=== PATIENT | female | born 1985 | race American Indian/Alaskan Native ===

== ENCOUNTER 2020-11-27 16:17 | Emergency (ER) | payer OTHER, SELFPAY ==
--- NOTE | 2020-11-27 19:00 | Emergency Department Report ---
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 Patient states pain is located diffusely across her lower abdomen. Describes the pain as "sharp," intermittent, no identifiable exacerbating or relieving factors. No history of similar symptoms. No known sick contacts. Last menstrual cycle was October 30. No prior surgical history. Denies fever, chills, nausea, vomiting, diarrhea, constipation, vaginal bleeding, vaginal discharge, urinary symptoms. Denies all other complaints at this time. - Related Data Home Medications Medication Instructions Recorded Confirmed Last Taken Rivaroxaban [Xarelto] 20 mg PO QDAY 08/19/15 11/09/15 11/09/15 Previous Rx's Medication Instructions Recorded Last Taken Type traMADoL [Ultram] 50 mg PO Q6HR PRN #14 tablet 11/10/15 Unknown Rx Allergies Allergy/AdvReac Type Severity Reaction Status Date / Time No Known Allergies Allergy Verified 08/19/15 08:11 ED Review of Systems ROS: Stated complaint: ABD PAIN RT AND LEFT SIDE Other details as noted in HPI Other: GENERAL: Negative for fever, chills, weight change, anorexia, fatigue. ENT: Negative for ear pain, difficulty hearing, sore throat, nasal congestion, epistaxis. CARDIOVASCULAR: Negative for chest pain, palpitations, lower extremity swelling. PULMONARY: Negative for cough, dyspnea, wheezing, orthopnea, cyanosis. GASTROINTESTINAL: Positive for abdominal pain. MUSCULOSKELETAL: Negative for joint pain, joint swelling, myalgias, back pain, neck pain. NEUROLOGICAL: Negative for headache, seizure, syncope, paresthesias, weakness. INTEGUMENTARY: Negative for erythema, rash, diaphoresis, laceration, ecchymosis. HEMATOLOGICAL: Negative for hemoptysis, hematemesis, hematochezia, hematuria. PSYCHIATRIC: Negative for hallucinations, suicidal ideation, homicidal ideation, anxiety, depression. ED Past Medical Hx - Past Medical History Previous Medical History?: Yes Hx Congestive Heart Failure: No Hx Diabetes: No Hx Pulmonary Embolism: Yes (ivc filter placed 05/2015) Hx GERD: Yes Hx Asthma: No Hx COPD: No - Surgical History Past Surgical History?: Yes Additional Surgical History: IVC filter May 2015 - Social History Smoking Status: Never Smoker Substance Use Type: None - Medications Home Medications: Home Medications Medication Instructions Recorded Confirmed Last Taken Type Rivaroxaban [Xarelto] 20 mg PO QDAY 08/19/15 11/09/15 11/09/15 History traMADoL [Ultram] 50 mg PO Q6HR PRN #14 tablet 11/10/15 Unknown Rx ED Physical Exam - General Limitations: No Limitations - Other Other exam information: General: Awake and alert. No acute distress. Head: Atraumatic, normocephalic. Eyes: EOMI. Pupils are equal and round. Normal sclera and conjunctiva. ENT: Oral mucosa is moist. Normal pharyngeal exam. Neck: Supple. No lymphadenopathy. Pulmonary: No respiratory distress. Clear to auscultation bilaterally. Cardiac: Regular rate and rhythm. Pulses are palpable and equal bilaterally. No lower extremity cyanosis or edema. Skin: Warm and dry. No rashes. Abdomen: Soft, non-protuberant. Diffuse lower abdominal tenderness without guarding, rigidity, or rebound. Bowel sounds are normal. No organomegaly or masses noted. Back: Normal alignment. No CVA tenderness. Extremities: Symmetrical. Full range of motion intact. Neurological: Alert and oriented, appropriately interactive, no focal deficits. Psych: Cooperative. Appropriate mood and affect. Speech is evenly metered. Thoughts are logically construed. ED Course Vital Signs 11/27/20 16:53 Temperature 98.0 F Pulse Rate 70 Respiratory 18 Rate Blood Pressure 132/81 O2 Sat by Pulse 98 Oximetry ED Medical Decision Making - Lab Data Result diagrams: 11/27/20 19:05 11/27/20 19:05 - Radiology Data [facility] [address] [place] [address] Cat Scan Report Signed Patient: EDISON EDWARDS MR#: [id number] : 1985 Acct:[id number] Age/Sex: 34 / F ADM Date: 11/27/20 Loc: ED Attending Dr: Ordering Physician: LAYLA ROSAS Date of Service: 11/27/20 Procedure(s): CT angio abdomen pelvis Accession Number(s): [id number] cc: LAYLA ROSAS CTA ABDOMEN AND PELVIS WITH CONTRAST INDICATION / CLINICAL INFORMATION: Pt complains of lower abd pain, Hx DVT's, bilat filters in place. TECHNIQUE: Axial CT images were obtained through the abdomen and pelvis before and after after injection of 100 cc of Omnipaque 350 IV contrast. 3 plane MIP / 3D reconstructions were produced. All CT scans at this location are performed using CT dose reduction for ALARA by means of automated exposure control. COMPARISON: None available. FINDINGS: AORTA: No significant abnormality. RENAL ARTERIES: No significant abnormality. CELIAC ARTERY: No significant abnormality. SUPERIOR MESENTERIC ARTERY: No significant abnormality. INFERIOR MESENTERIC ARTERY: No significant abnormality. RIGHT ILIAC ARTERIES: No significant abnormality.. LEFT ILIAC ARTERIES: No significant abnormality.. ADDITIONAL FINDINGS: There is a left common iliac vein stent. The patency of this is not evaluated on this examination secondary to contrast timing for arterial phase. There is a hypoattenuating lesion noted within the right hepatic lobe, consistent with a hepatic cyst. Otherwise the liver is unremarkable. SKELETAL: No significant abnormality. IMPRESSION: 1. No significant abnormality noted involving the arteries. 2. Other findings as above. Signer Name: Rehan Kimbrough DO Signed: 11/27/2020 10:01 PM Workstation Name: [id number] Transcribed By: BRIAN Dictated By: REHAN KIMBROUGH DO Electronically Authenticated By: REHAN KIMBROUGH DO Signed Date/Time: 11/27/202200 DD/ 56 TD/TT: - Medical Decision Making Differential diagnosis including but not limited to: appendicitis, pancreatitis, hepatobiliary disease, , urinary tract infection, pyelonephritis, pelvic inflammatory disease, mesenteric ischemia, arterial occlusion, filter/stent malfunction On reevaluation, patient remains stable. Repeat abdominal exam is benign. Labs consistent with mild dehydration. test is negative. Urinalysis without signs of infection. CT angiogram of the abdomen/pelvis was obtained due to patient's history of venous thromboembolism. No acute process was identified. Etiology of patient's abdominal pain is unclear however there is no clinical indication for further diagnostic work-up and/or emergent surgical consultation at this time. Patient will be discharged home to follow-up with primary care provider this week. Patient expressed understanding and is agreeable to plan of care. Strict return precautions provided. Repeat exam is unremarkable and benign. History, exam, diagnostic testing, and current condition do not suggest worrisome pathology to warrant further testing, continued ED treatment, admission, or surgical evaluation at this point. Given the low probability of a significant medical illness, it would be more likely to result in harm than benefit to perform further testing at this stage. Discussed findings, presumptive diagnosis, need for follow-up and specific signs/symptoms that should prompt immediate return to the emergency department. Instructions were explained in detail to the patient in addition to giving written discharge information. Patient expressed understanding and was given the opportunity to ask questions, all of which were satisfactorily answered prior to discharge home. Critical care attestation.: If time is entered above; I have spent that time in minutes in the direct care of this critically ill patient, excluding procedure time. ED Disposition Clinical Impression: Nonspecific abdominal pain, Mild dehydration Disposition: HOME / SELF CARE / HOMELESS Is pt being admited?: No Does the pt Need Aspirin: No Condition: Stable Instructions: Abdominal Pain (ED), Abdominal Pain, Adult, [id number], Dehydration, Adult Additional Instructions: Take Tylenol every 4 hours as needed for pain. Rest. Drink plenty of fluids. Gradually advance diet slowly as tolerated. Follow-up with primary care provider this week. Call tomorrow to schedule an appointment. See referral information below. Return to the emergency department immediately for new or worsening symptoms. Specifically, return to the emergency department immediately for fever, worsening pain, vomiting, black/bloody stools, abnormal vaginal bleeding or discharge, or any other concerns. Referrals: RUDDY CHAMPION MD [Staff Physician] - 3-5 Days [facility] [Provider Group] - 3-5 Days Time of Disposition: 22:22
[2020-11-27 19:27] LABS: Basophils % (Auto) 0.9 % (0.0-1.8); Eosinophils # (Auto) 0.2 K/mm3 (0.0-0.4); Eosinophils % (Auto) 3.4 % (0.0-4.3); Hematocrit 33.3 % (30.3-42.9); Hemoglobin 10.3 gm/dl (10.1-14.3); Lymphocytes # (Auto) 1.9 K/mm3 (1.2-5.4); Lymphocytes % (Auto) 37.3 % (13.4-35.0); Mean Corpuscular HGB Conc 31 % (30-34); Monocytes # (Auto) 0.6 K/mm3 (0.0-0.8); Monocytes % (Auto) 11.4 % (0.0-7.3); Platelet Count 346 K/mm3 (140-440); Red Blood Count 4.91 M/mm3 (3.65-5.03)
[2020-11-27 19:34] LABS: Mean Corpuscular Volume 68 fl (79-97)
[2020-11-27 19:35] LABS: Red Cell Distribution Width 24.3 % (13.2-15.2)
[2020-11-27 19:54] LABS: Alanine Aminotransferase 13 units/L (7-56); Albumin 4.5 g/dL (3.9-5); BUN/Creatinine Ratio 25; Blood Urea Nitrogen 20 mg/dL (7-17); Calcium 9.8 mg/dL (8.4-10.2); Hemolysis Index 4
[2020-11-27 20:03] LABS: Bilirubin,Urine NEG (Negative); Blood,Urine NEG (Negative); Color,Urine Yellow (Yellow); Mucus,Urine FEW /HPF
[2020-11-27] MEDS ORDERED: SODIUM CHLORIDE 0.9% 1000 ML 1,000 ML IV ONE (20:11)
--- NOTE | 2020-11-27 22:05 | Cat Scan Report ---
CTA ABDOMEN AND PELVIS WITH CONTRAST INDICATION / CLINICAL INFORMATION: Pt complains of lower abd pain, Hx DVT's, bilat filters in place. TECHNIQUE: Axial CT images were obtained through the abdomen and pelvis before and after after inject ion of 100 cc of Omnipaque 350 IV contrast. 3 plane MIP / 3D reconstructions were produced. All CT sc ans at this location are performed using CT dose reduction for ALARA by means of automated exposure c ontrol. COMPARISON: None available. FINDINGS: AORTA: No significant abnormality. RENAL ARTERIES: No significant abnormality. CELIAC ARTERY: No significant abnormality. SUPERIOR MESENTERIC ARTERY: No significant abnormality. INFERIOR MESENTERIC ARTERY: No significant abnormality. RIGHT ILIAC ARTERIES: No significant abnormality.. LEFT ILIAC ARTERIES: No significant abnormality.. ADDITIONAL FINDINGS: There is a left common iliac vein stent. The patency of this is not evaluated on this examination secondary to contrast timing for arterial phase. There is a hypoattenuating lesion noted within the right hepatic lobe, consistent with a hepatic cyst. Otherwise the liver is unremarka ble. SKELETAL: No significant abnormality. IMPRESSION: 1. No significant abnormality noted involving the arteries. 2. Other findings as above. Signer Name: Rehan Bowling DO Signed: 11/27/2020 10:01 PM Workstation Name: [id number]
[2020-11-27] MEDS ORDERED: SODIUM CHLORIDE 0.9% 1000 ML 1,000 ML ONE (23:47)
[2020-11-28 00:47] VITALS: BP 158/91
== END 2020-11-28 00:50 | disposition home or self-care (01) ==
LOC: ED 16:17
DX: E86.0 Dehydration (principal); R10.30 Lower abdominal pain, unspecified; K21.9 Gastro-esophageal reflux disease without esophagitis; Z98.890 Other specified postprocedural states
CPT/HCPCS: 36415; 74174; 80053; 81001; 83690; 83735; 84703; 85025; 96360; 99284; J7030; Q9967